=== PATIENT | female | born 1990 | race Caucasian/White ===

== ENCOUNTER 2020-05-01 13:03 | Emergency (ER) | payer OTHER, SELFPAY ==
--- NOTE | ~2020-05-01 | XR_ITS ---
EXAMINATION: XR finger 2nd RT min 2V INDICATION: Right second finger pain TECHNIQUE: Four views of the right second finger are obtained. COMPARISON: None available FINDINGS: A small soft tissue defect is seen overlying the second middle phalanx. There is no fractur e, dislocation, or subluxation. The bones and joint spaces are normal. No radiopaque foreign body is identified. IMPRESSION: 1. Soft tissue defect of the right second finger without underlying osseous abnormality or radiopaque foreign body. Reviewed, dictated and finalized at location A. ER IMPRESSION: 1. Soft tissue defect of the right second finger without underlying osseous abn ormality or radiopaque foreign body.
[2020-05-01 13:19] VITALS: BP 117/82; PULSE 87; RESP 21; TEMP 36.9; O2SAT 97
[2020-05-01] MEDS: TETANUS,DIPHTHERIA,AC PERTUSSIS ADULT (0.5 ML) BOOSTRIX IM (13:47)
[2020-05-01] MEDS: ceFAZolin SODIUM 1 GM VIAL IM (13:47)
[2020-05-01] MEDS: LORazepam (*CRX) 1 MG TABLET PO (13:48)
[2020-05-01] MEDS: HYDROcodone/acetaminophen (*CRX) 5-325 MG TABLET 1 TAB PO (13:48)
[2020-05-01] MEDS: WATER, STERILE FOR INJECTION 10 ML VIAL XX (13:49)
--- NOTE | 2020-05-01 13:52 | ED.ANIMALBIT ---
HPI - Animal Bite General Chief Complaint: Animal Bite <Sam Perla PA-C - Last Filed: 05/01/20 15:32> Stated Complaint: dog bite <Sam Perla PA-C - Last Filed: 05/01/20 15:32> Time Seen by Provider: 05/01/20 13:24 <Sam Perla PA-C - Last Filed: 05/01/20 15:32> Source: patient and family <ANTONINO Odom Last Filed: 05/01/20 15:32> Mode of arrival: ambulatory <ANTONINO Odom Last Filed: 05/01/20 15:32> Limitations: no limitations <Sam Perla PA-C - Last Filed: 05/01/20 15:32> History of Present Illness HPI narrative: Patient is a 29-year-old female who presents with dog bites patient was her dogs while they were fighting sustained bite to the right index finger where she has moderate aching pain and open wound patient also has dog bites with abrasions and superficial puncture wounds to the right inner arm at the level of the elbow patient notes moderate aching pain worse with activity and movement patient is unsure as to tetanus status patient in the room on arrival appearing uncomfortable no distress has not taken anything for her symptoms <Sam Perla PA-C - Last Filed: 05/01/20 15:32> Related Data Allergies/Adverse Reactions: Allergies Allergy/AdvReac Type Severity Reaction Status Date / Time No Known Allergies Allergy Verified 05/01/20 13:22 <ANTONINO Odom Last Filed: 05/01/20 15:32> Review of Systems Review of Systems: All systems reviewed & are unremarkable except as noted in HPI and below <Sam Perla PA-C - Last Filed: 05/01/20 15:32> [facility] Family History Family History: Family History (Updated 02/25/14 @ 07:13 by DOCTOR UNKNOWN) Grandparent Family history of malignant neoplasm, Onset Age: 79 Family history of lung cancer, Onset Age: 56 <Sam Perla PA-C - Last Filed: 05/01/20 15:32> Social History Social History: Social History Second hand tobacco smoke exposure: Yes Alcohol intake: current <ANTONINO Odom Last Filed: 05/01/20 15:32> Exam Narrative: Exam Narrative: GENERAL: Well-appearing, well-nourished, and in no acute distress. HEAD: Normocephalic, atraumatic. EYES: PERRLA and EOMI. ENT: Nares clear, no rhinorrhea or epistaxis. Mucous membranes moist. EXTREMITIES: Normal range of motion. No edema. Gaping laceration right index finger at the level of the mid phalanx near the DIP joint measuring 1 cm. Few puncture wounds and superficial abrasions of the medial aspect of the right arm at the level of the elbow and proximal forearm SKIN: Warm, dry, no rash. NEURO: No focal deficits. Alert and oriented x3. Neurovascularly intact. Capillary refill less than 2 seconds PSYCH: Normal mood and affect. <ANTONINO Odom Last Filed: 05/01/20 15:32> Course Course Emergency Course: Patient in the room was evaluated had negative x-rays patient had 1 suture placed in the wound which was copiously irrigated and scrubbed and cleaned wound was closed with a single suture secondary to the gaping nature. Patient neurovascularly intact pre and post procedure was given tetanus and antibiotics in the emergency department and given hand surgery follow-up and provided with reasons to return <ANTONINO Odom Last Filed: 05/01/20 15:32> Vital Signs Vital signs: Vital Signs Temperature 98.5 F 05/01/20 13:19 Pulse Rate 87 05/01/20 13:19 Respiratory Rate 21 H 05/01/20 13:19 Blood Pressure 117/82 05/01/20 13:19 Pulse Oximetry 97 05/01/20 13:19 Temperature 98.8 F 05/01/20 15:28 Pulse Rate 82 05/01/20 16:00 Respiratory Rate 17 05/01/20 16:00 Blood Pressure 115/74 05/01/20 16:00 Pulse Oximetry 97 05/01/20 16:00 <Sam Perla PA-C - Last Filed: 05/01/20 15:32> Vital Signs Temperature 98.5 F 05/01/20 13:19 Pulse Rate 87
[2020-05-01 15:28] VITALS: BP 107/54; PULSE 72; RESP 16; TEMP 37.1; O2SAT 99
[2020-05-01 16:00] VITALS: BP 115/74; PULSE 82; RESP 17; O2SAT 97
== END 2020-05-01 13:52 | disposition home or self-care (01) ==
PROVIDERS: Emergency Provider General Practice
DX: S61.250A Open bite of right index finger without damage to nail, initial encounter (principal); S51.051A Open bite, right elbow, initial encounter; Z23 Encounter for immunization; W54.0XXA Bitten by dog, initial encounter
CPT/HCPCS: 12031; 12001; 73140; 90471; 90715; 96372; 99283; A9270; J0690